=== PATIENT | female | born 1945 | race Caucasian/White ===

== ENCOUNTER 2021-07-12 07:36 | Emergency (ER) | payer MEDICARE, OTHER, MEDICAID ==
[~2021-07-12] VITALS: Ht 162.6 cm; Wt 105.0 kg
--- NOTE | 2021-07-12 08:19 | RAD ---
Exam:Left ribs with PA chest Date: 07/12/2021 7:47 AM Comparison: No prior Indication: Reason: fall, mild left rib tenderness / Spl. Instructions: / History: Findings/ Impression: The heart is not enlarged. Mediastinal and hilar contours are normal. Calcified mediastinal and hilar lymph nodes. No focal parenchymal airspace opacity. Calcified granuloma left lower lung. No pleural effusion or pneumothorax. AP, Oblique and Spot images of the left ribs are negative for acute displaced rib fracture. Negative focal pleural elevation. Symmetrical intercostal spacing. It is of note that an acute non-displaced rib fracture can be in-apparent on initial post-trauma imag ing, particularly in this patient with marked osteopenia. Electronically signed by: Lan Peacock MD (07/12/2021 8:17 AM) [id number]
[2021-07-12 08:39] LABS: BASO % 1 % (0-3); EOS # 0.2 x10^3/uL (0.0-0.7); EOS % 2 % (0-3); HEMATOCRIT 35.3 % (36.0-47.0); HEMOGLOBIN 11.6 g/dL (12.0-15.5); LYMPH # 1.1 x10^3/uL (1.0-4.8); LYMPH % 12 % (24-48); MEAN CORPUSCULAR HEMOGLOBIN 29 pg (25-35); MEAN CORPUSCULAR HGB CONC 33 g/dL (31-37); MEAN CORPUSCULAR VOLUME 87 fL (79-100); MONO # 0.8 x10^3/uL (0.0-1.1); MONO % 9 % (0-9); NEUT # 7.2 x10^3/uL (1.8-7.7); NEUT % 77 % (31-73); PLATELET COUNT 215 x10^3/uL (140-400); RED BLOOD COUNT 4.04 x10^6/uL (3.50-5.40); RED CELL DISTRIBUTION WIDTH 13.3 % (11.5-14.5); WHITE BLOOD COUNT 9.3 x10^3/uL (4.0-11.0)
--- NOTE | 2021-07-12 08:43 | RAD ---
Exam Date: 07/12/2021 8:[address] HEAD AND C-SPINE WO Indication: Reason: fall, on ASA/Plavix / Spl. Instructions: / History: . One or more of the following dose reduction techniques were utilized: *Automated exposure control (AEC) *Adjustment of mA and/or kV according to patient size *Use of iterative reconstruction technique *CT scan done according to ALARA, or ALARA/IMAGE GENTLY EXAMINATION: CT OF THE HEAD WITHOUT CONTRAST INDICATION: Trauma, head injury, headache; TECHNIQUE: Noncontrast helical axial CT images of the head were obtained. 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 The ventricles and sulci are prominent consistent with cerebral volume loss. Patchy ill-defined low attenuation areas in the subcortical and periventricular white matter bilaterally are consistent with microvascular disease. There is no evidence of acute intracranial hemorrhage, extra-axial collecti on, mass effect, midline shift, or acute territorial infarct. No lesion of the skull base or the calv arium is seen. The visualized paranasal sinuses, mastoid air cells, and orbits are normal in appearan ce. IMPRESSION: No evidence for acute intracranial abnormality. 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 Volume loss and microvascular disease. EXAMINATION: CT OF THE CERVICAL SPINE WITHOUT CONTRAST Clinical Indication: Cervical spine pain after trauma Technique: Thin cut helical axial CT images through the cervical spine were obtained without contrast on a multi-detector CT scanner. Source data was then reconstructed into sagittal and coronal planes. Findings: Alignment is maintained without spondylolisthesis. Vertebral body heights are maintained without acute fracture. Moderate multilevel degenerative change s are noted. No significant prevertebral soft tissue swelling is demonstrated. No severe osseous cent ral canal stenosis is seen. Impression: No evidence of acute cervical spine fracture or subluxation. Electronically signed by: John Nolasco MD (07/12/2021 8:41 AM) [id number]
[2021-07-12 08:51] LABS: CALCIUM 8.5 mg/dL (8.5-10.1); CREATININE 1.4 mg/dL (0.6-1.0); GFR 36.4; POTASSIUM 3.8 mmol/L (3.5-5.1)
[2021-07-12 09:40] LABS: BILIRUBIN,URINE NEGATIVE (NEG); CLARITY,URINE CLEAR; COLOR,URINE YELLOW; NITRITE,URINE POSITIVE (NEG); PH,URINE 5.5 (<5.0-8.0); PROTEIN,URINE 100 mg/dL (NEG-TRACE); UROBILINOGEN,URINE 0.2 mg/dL (0.2 mg/dL)
[2021-07-12 09:57] LABS: BACTERIA,URINE MANY /HPF (0-FEW); RBC,URINE 0 /HPF (0-2); WBC,URINE 0 /HPF (0-4)
--- NOTE | 2021-07-12 10:13 | RAD ---
XR EXAM OF ANKLE_RIGHT 3VIEWS History: Fall, ankle pain Comparison: None. Technique: 3 views of the right ankle. Findings: Decreased osseous mineralization. No fracture or dislocation. The ankle mortise and talar dome are in tact. Ossific densities at the lateral malleolus tip consistent with sequela of old ligamentous avuls ion injuries. Small plantar calcaneal enthesophyte. Diffuse ankle soft tissue swelling. Small anterio r ankle effusion. Impression: 1. No acute osseous abnormality of the right ankle. Electronically signed by: Ishmael Wheat MD (07/12/2021 10:11 AM) [id number]
--- NOTE | 2021-07-12 10:26 | PHYS DOC ---
Past Medical History Past Surgical History: Other Additional Past Surgical Histo: unable to obtain Smoking Status: Unknown if ever smoked Alcohol Use: None General Adult EDM: Chief Complaint: MECHANICAL FALL HPI: HPI: Patient is a 76 year old female with history of dementia, CKD, HTN, DM who presents with an unwitnessed fall at her nursing facility [facility]. She was seen in her normal state this morning, and 15 minutes later was found on the ground by nursing staff. Was initially face down, but she turned herself onto her back under her own power. Unsure of LOC. She is on Plavix and aspirin per her MAR. No other blood thinners. Patient was initially complaining of pain, but unclear location, but on arrival to the ED is no longer complaining of any pain. Review of Systems: Review of Systems: Cannot complete full ROS secondary to dementia Heart Score: C/O Chest Pain: No Allergies: Allergies: Allergies Coded Allergies Type Severity Reaction Last Updated Verified desipramine Allergy Unknown 07/12/21 Yes naproxen Allergy Unknown 07/12/21 Yes rofecoxib Allergy Unknown 07/12/21 Yes simvastatin Allergy Unknown 07/12/21 Yes Physical Exam: PE: Constitutional: Well developed, well nourished, no acute distress, non-toxic appearance. [] HENT: Slight bruising on the right forehead. No underlying tenderness or instability. Eyes: PERRLA, EOMI, conjunctiva normal, no discharge. [] Neck: Normal range of motion, no midline tenderness, supple, no stridor. [] Cardiovascular:Heart rate regular rhythm, no murmur [] Lungs & Thorax: Breath sounds clear to auscultation bilaterally. Mild left ches t wall tenderness to palpation with lateral pressure. Abdomen: Bowel sounds normal, soft, no tenderness, no masses, no pulsatile masses.. Pelvis stable. [] Skin: Warm, dry, no erythema, no rash. [] Back: No tenderness, no CVA tenderness. [] Extremities: No tenderness, no cyanosis, no clubbing, ROM intact, no edema. [] Neurologic: Alert and oriented to person, normal motor function, normal sensory function, no focal deficits noted. [] Psychologic: Affect normal, judgement normal, mood normal. [] Current Patient Data: Labs: Laboratory Tests Test 07/12/21 08:31 07/12/21 09:19 White Blood Count 9.3 x10^3/uL (4.0-11.0) Red Blood Count 4.04 x10^6/uL (3.50-5.40) Hemoglobin 11.6 g/dL (12.0-15.5) L Hematocrit 35.3 % (36.0-47.0) L Mean Corpuscular Volume 87 fL (79-100) Mean Corpuscular Hemoglobin 29 pg (25-35) Mean Corpuscular Hemoglobin Concent 33 g/dL (31-37) Red Cell Distribution Width 13.3 % (11.5-14.5) Platelet Count 215 x10^3/uL (140-400) Neutrophils (%) (Auto) 77 % (31-73) H Lymphocytes (%) (Auto) 12 % (24-48) L Monocytes (%) (Auto) 9 % (0-9) Eosinophils (%) (Auto) 2 % (0-3) Basophils (%) (Auto) 1 % (0-3) Neutrophils # (Auto) 7.2 x10^3/uL (1.8-7.7) Lymphocytes # (Auto) 1.1 x10^3/uL (1.0-4.8) Monocytes # (Auto) 0.8 x10^3/uL (0.0-1.1) Eosinophils # (Auto) 0.2 x10^3/uL (0.0-0.7) Basophils # (Auto) 0.0 x10^3/uL (0.0-0.2) Sodium Level 147 mmol/L (136-145) H Potassium Level 3.8 mmol/L (3.5-5.1) Chloride Level 107 mmol/L (98-107) Carbon Dioxide Level 25 mmol/L (21-32) Anion Gap 15 (6-14) H Blood Urea Nitrogen 29 mg/dL (7-20) H Creatinine 1.4 mg/dL (0.6-1.0) H Estimated GFR (Cockcroft-Gault) 36.4 Glucose Level 133 mg/dL (70-99) H Calcium Level 8.5 mg/dL (8.5-10.1) Urine Color Yellow Urine Clarity Clear Urine pH 5.5 (<5.0-8.0) Urine Specific Soldier 1.015 (1.000-1.030) Urine Protein 100 mg/dL (NEG-TRACE) Urine Glucose (UA) Negative mg/dL (NEG) Urine Ketones (Stick) Negative mg/dL (NEG) Urine Blood Trace (NEG) Urine Nitrite Positive (NEG) Urine Bilirubin Negative (NEG) Urine Urobilinogen Dipstick 0.2 mg/dL (0.2 mg/dL) Urine Leukocyte Esterase Negative (NEG) Urine RBC 0 /HPF (0-2) Urine WBC 0 /HPF (0-4) Urine Squamous Epithelial Cells Few /LPF Urine Bacteria Many /HPF (0-FEW) Laboratory Tests 07/12/21 08:31 Laboratory Tests 07/12/21 08:31 Vital Signs: Vital Signs Date Time Temp Pulse Resp B/P (MAP) Pulse Ox O2 Delivery O2 Flow Rate FiO2 07/12/21 07:49 98.5 66 18 204/91 (128 94 Room Air 98.5 EKG: EKG: [] Radiology/Procedures: Radiology/Procedures: [] Impression: [facility] [address] [place], [place] [id number] IMAGING REPORT Signed PATIENT: GURPREET DAYOUNT: [id number] : 1945 LOCATION: ER AGE: 76 SEX: F EXAM STATUS: PRE ER ORD. PHYSICIAN: GRACE LONGORIA MD REASON: fall, mild left rib tenderness PROCEDURE: RIBS LEFT AND PA CHEST Exam:Left ribs with PA chest Date: 07/12/2021 7:47 AM Comparison: No prior Indication: Reason: fall, mild left rib tenderness / Spl. Instructions: / History: Findings/ Impression: The heart is not enlarged. Mediastinal and hilar contours are normal. Calcified mediastinal and hilar lymph nodes. No focal parenchymal airspace opacity. Calcified granuloma left lower lung. No pleural effusion or pneumothorax. AP, Oblique and Spot images of the left ribs are negative for acute displaced rib fracture. Negative focal pleural elevation. Symmetrical intercostal spacing. It is of note that an acute non-displaced rib fracture can be in-apparent on initial post-trauma imaging, particularly in this patient with marked osteopenia. Electronically signed by: Lan Oliva MD (07/12/2021 8:17 AM) [id number] DICTATED and SIGNED BY: LAN OLIVA MD DATE: 07/12/21 [id number] 0 [facility] [address] [place] [address] IMAGING REPORT Signed PATIENT: GURPREET DAYOUNT: [id number] : 1945 LOCATION: ER AGE: 76 SEX: F EXAM STATUS: PRE ER ORD. PHYSICIAN: GRACE LONGORIA MD REASON: fall, on ASA/Plavix PROCEDURE: CT HEAD AND CERVICAL SPINE WO Exam Date: 07/12/2021 8:[address] HEAD AND C-SPINE WO Indication: Reason: fall, on ASA/Plavix / Spl. Instructions: / History: . One or more of the following dose reduction techniques were utilized: *Automated exposure control (AEC) *Adjustment of mA and/or kV according to patient size *Use of iterative reconstruction technique *CT scan done according to ALARA, or ALARA/IMAGE GENTLY EXAMINATION: CT OF THE HEAD WITHOUT CONTRAST INDICATION: Trauma, head injury, headache; TECHNIQUE: Noncontrast helical axial CT images of the head were obtained. 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 The ventricles and sulci are prominent consistent with cerebral volume loss. Patchy ill-defined low attenuation areas in the subcortical and periventricular white matter bilaterally are consistent with microvascular disease. There is no evidence of acute intracranial hemorrhage, extra-axial collection, mass effect, midline shift, or acute territorial infarct. No lesion of the skull base or the calvarium is seen. The visualized paranasal sinuses, mastoid air cells, and orbits are normal in appearance. IMPRESSION: No evidence for acute intracranial abnormality. 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 Volume loss and microvascular disease. EXAMINATION: CT OF THE CERVICAL SPINE WITHOUT CONTRAST Clinical Indication: Cervical spine pain after trauma Technique: Thin cut helical axial CT images through the cervical spine were obtained without contrast on a multi-detector CT scanner. Source data was then reconstructed into sagittal and coronal planes. Findings: Alignment is maintained without spondylolisthesis. Vertebral body heights are maintained without acute fracture. Moderate multilevel degenerative changes are noted. No significant prevertebral soft tissue swelling is demonstrated. No severe osseous central canal stenosis is seen. Impression: No evidence of acute cervical spine fracture or subluxation. Electronically signed by: Melly Nolasco MD (07/12/2021 8:41 AM) [id number] DICTATED and SIGNED BY: MELLY NOLASCO MD DATE: 07/12/21 [id number] 0 [facility] [address] [place] [address] IMAGING REPORT Signed PATIENT: GURPREET DAYOUNT: [id number] : 1945 LOCATION: ER AGE: 76 SEX: F EXAM STATUS: REG ER ORD. PHYSICIAN: GRACE LONGORIA MD REASON: fall, ankle pain PROCEDURE: ANKLE RIGHT 3V XR EXAM OF ANKLE_RIGHT 3VIEWS History: Fall, ankle pain Comparison: None. Technique: 3 views of the right ankle. Findings: Decreased osseous mineralization. No fracture or dislocation. The ankle mortise and talar dome are intact. Ossific densities at the lateral malleolus tip consistent with sequela of old ligamentous avulsion injuries. Small plantar calcaneal enthesophyte. Diffuse ankle soft tissue swelling. Small anterior ankle effusion. Impression: 1. No acute osseous abnormality of the right ankle. Electronically signed by: Ishmael Ng MD (07/12/2021 10:11 AM) [id number] DICTATED and SIGNED BY: ISHMAEL NG MD DATE: 07/12/21 [id number] 0 Course & Med Decision Making: Course & Med Decision Making Pertinent Labs and Imaging studies reviewed. (See chart for details) Patient is 76-year-old female with history of dementia, CKD, HTN, DM who presents from [facility] after an unwitnessed fall. There was no p rolonged downtime. On arrival is afebrile, hemodynamically stable. At her reported neurologic baseline. Basic labs show known CKD. UA not infected. Chest x-ray and rib series negative for acute fracture or pulmonary process. She briefly complained of right ankle pain, plain films were negative and no e/o injury was seen on exam. CT head and neck were negative. Feel she can be safely discharged back to [facility] at this time. [address] Disclaimer: Ashley Disclaimer: This electronic medical record was generated, in whole or in part, using a voice recognition dictation system. Departure Departure Impression: Primary Impression: Fall Additional Impression: Forehead contusion Disposition: HOME / SELF CARE / HOMELESS Condition: STABLE Referrals: NO PCP (PCP) GRACE LONGORIA MD Jul 12, 2021 10:26
[2021-07-12 12:27] VITALS: BP 154/89
== END 2021-07-12 12:28 | disposition home or self-care (01) ==
LOC: ER 07:36
DX: S00.83XA Contusion of other part of head, initial encounter (principal); R07.89 Other chest pain; M25.571 Pain in right ankle and joints of right foot; F03.90 Unspecified dementia, unspecified severity, without behavioral disturbance, psychotic disturbance, mood disturbance, and anxiety; E11.22 Type 2 diabetes mellitus with diabetic chronic kidney disease; I12.9 Hypertensive chronic kidney disease with stage 1 through stage 4 chronic kidney disease, or unspecified chronic kidney disease; N18.9 Chronic kidney disease, unspecified; Z79.02 Long term (current) use of antithrombotics/antiplatelets; Z88.8 Allergy status to other drugs, medicaments and biological substances; W18.39XA Other fall on same level, initial encounter; Y93.89 Activity, other specified; Y92.89 Other specified places as the place of occurrence of the external cause; Y99.8 Other external cause status
CPT/HCPCS: 36415; 70450; 71101; 72125; 73610; 80048; 81001; 85025; 99285-25

== ENCOUNTER 2021-07-30 06:29 | Emergency (ER) | payer MEDICARE, OTHER ==
[~2021-07-30] VITALS: Ht 162.6 cm; Wt 97.7 kg
--- NOTE | 2021-07-30 06:46 | PHYS DOC ---
Past Medical History Past Surgical History: Other Additional Past Surgical Histo: unable to obtain Smoking Status: Unknown if ever smoked Alcohol Use: None General Adult EDM: Chief Complaint: ALTERED MENTAL STATUS HPI: HPI: Patient is a 76 year old female brought in by EMS from [facility], her assisted living facility, for being found on the bathroom floor. She reportedly had a fall, though this was unwitnessed. The staff called EMS because the patient cannot remember how she got there. The patient has dementia, she is currently at her baseline mental status, no report of acute confusion. The patient admits that she is not sure what happened. She is awake, alert, she is oriented to person only, and this is her baseline. She reports some mild right- sided groin pain. She denies headache, neck pain, back pain. She denies chest pain, dyspnea, palpitations, nausea or vomiting or abdominal pain. She denies numbness or tingling or focal motor weakness. She has chronic and unchanged bilateral lower extremity pain, muscle aches and bilateral knee pain, which is unchanged. She denies any acute knee injury or trauma. The patient takes Plavix, no other anticoagulant medications reportedly being taken. She was seen here in this ER on 07/12/21 for evaluation after a fall. Imaging was negative at that time, and she was discharged home from the ED. Review of Systems: Review of Systems: Review of systems is as per HPI. The patient has baseline dementia and chronic confusion, unable to obtain more detailed information for review of systems aside as per HPI. Please see above Heart Score: C/O Chest Pain: No Risk Factors: Risk Factors: DM, Current or recent (<one month) smoker, HTN, HLP, family history of CAD, obesity. Risk Scores: Score 0 - 3: 2.5% MACE over next 6 weeks - Discharge Home Score 4 - 6: 20.3% MACE over next 6 weeks - Admit for Clinical Observation Score 7 - 10: 72.7% MACE over next 6 weeks - Early Invasive Strategies Allergies: Allergies: Allergies Coded Allergies Type Severity Reaction Last Updated Verified desipramine Allergy Unknown 07/12/21 Yes naproxen Allergy Unknown 07/12/21 Yes rofecoxib Allergy Unknown 07/12/21 Yes simvastatin Allergy Unknown 07/12/21 Yes Physical Exam: PE: Constitutional: Well developed, well nourished, no acute distress, non-toxic appearance. She is sitting up in the ED gurney, smiling, resting comfortably HENT: Normocephalic, atraumatic, oropharynx is patent and clear, no dental trauma. TMs are clear bilaterally, no otorrhea, no hemotympanum. Nares are patent without rhinorrhea or epistaxis. Mucous membranes are moist. Eyes: PERRL, EOMI, conjunctiva normal, no discharge. No nystagmus. Neck: Normal range of motion, no tenderness, supple, no stridor. Trachea is midline. No midline or paraspinal muscle tenderness, no step-offs or defor mities. Cardiovascular:Heart rate regular rhythm, was 2 dorsalis pedis and +2 radial pulses bilaterally. Lungs & Thorax: Bilateral breath sounds clear to auscultation [] Abdomen: Admits obese, soft, nondistended, nontender to palpation. Skin: Warm, dry, no erythema, no rash. No open wounds. Back: No tenderness, no CVA tenderness, no deformity, no step-offs, no midline or paraspinal tenderness. Extremities: No limb deformities. Pelvis is stable. Mild soft tissue tenderness of the right proximal femur, inguinal area. No palpable defect or hernia. No palpable crepitus or step-offs. Painless passive range of motion of bilateral hips, knees, ankles and feet. No calf tenderness. No upper extremity tenderness or deformities. Neurologic: He is awake, alert, oriented to person only. Pleasantly confused, she is confused about location, date, situation. She follows all commands. Cranial nerves II through XII grossly intact. Speech is clear and fluent. 5 out of 5 motor strength all 4 extremities. No evidence of limb ataxia or pronator drift. Psychologic: Affect normal, judgement normal, mood normal. Is pleasant and cooperative. EKG: EKG: EKG is interpreted at 0643 Rhythm is sinus Rate is 69 bpm Marked artifact No STEMI Radiology/Procedures: Radiology/Procedures: IMAGING REPORT Signed PATIENT: ROB DAY: [id number] : 1945 LOCATION: ER AGE: 76 SEX: F EXAM STATUS: PRE ER ORD. PHYSICIAN: MARCEL CHIANG DO REASON: fall, R hip pain PROCEDURE: HIP RIGHT 2V WITH PELVIS Exam Date: 07/30/2021 7:04 AM XR BILATERAL HIP (WITH OR WITHOUT PELVIS) 2 VIEWS_RIGHT Indication: Reason: fall, R hip pain / Spl. Instructions: / History: . FINDINGS/ IMPRESSION: Mild degenerative changes are seen in the hips bilaterally. Alignment is maintained. Degenerative changes are noted in the lower lumbar spine, SI joints, and pubic symphysis. No acute fracture or dislocation. The soft tissues are within normal limits. Electronically signed by: John Nolasco MD (07/30/2021 7:24 AM) [id number] DICTATED and SIGNED BY: JOHN NOLASCO MD DATE: 07/30/21 [id number] 0 IMAGING REPORT Signed PATIENT: GURPREET DAYOUNT: [id number] : 1945 LOCATION: ER AGE: 76 SEX: F EXAM STATUS: PRE ER ORD. PHYSICIAN: MARCEL CHIANG DO REASON: fall PROCEDURE: CT HEAD AND CERVICAL SPINE WO Exam Date: 07/30/2021 7:[address] HEAD AND C-SPINE WO Indication: Reason: fall / Spl. Instructions: / History: . One or more of the following dose reduction techniques were utilized: *Automated exposure control (AEC) *Adjustment of mA and/or kV according to patient size *Use of iterative reconstruction technique *CT scan done according to ALARA, or ALARA/IMAGE GENTLY EXAMINATION: CT OF THE HEAD WITHOUT CONTRAST INDICATION: Trauma, head injury, headache; TECHNIQUE: Noncontrast helical axial CT images of the head were obtained. COMPARISON: July 12, 2021 FINDINGS: Again seen is encephalomalacia in the right frontal lobe consistent with remote infarct. The ventricles and sulci are prominent consistent with cerebral volume loss. Patchy ill-defined low attenuation areas in the subcortical and periventricular white matter bilaterally are consistent with microvascular disease. There is no evidence of acute intracranial hemorrhage, extra-axial collection, mass effect, midline shift, or acute territorial infarct. No lesion of the skull base or the calvarium is seen. The visualized paranasal sinuses, mastoid air cells, and orbits are normal in appearance. IMPRESSION: No evidence for acute intracranial abnormality. 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 EXAMINATION: CT OF THE CERVICAL SPINE WITHOUT CONTRAST Clinical Indication: Cervical spine pain after trauma Technique: Thin cut helical axial CT images through the cervical spine were obtained without contrast on a multi-detector CT scanner. Source data was then reconstructed into sagittal and coronal planes. COMPARISON: July 12, 2021 Findings: Alignment is maintained without spondylolisthesis. Vertebral body heights are maintained without acute fracture. Moderate multilevel degenerative disease are noted. No significant prevertebral soft tissue swelling is demonstrated. No severe osseous central canal stenosis is seen. Impression: No evidence of acute cervical spine fracture or subluxation. Electronically signed by: John Nolasco MD (07/30/2021 7:57 AM) [id number] DICTATED and SIGNED BY: JOHN NOLASCO MD DATE: 07/30/21 [id number] 0 Course & Med Decision Making: Course & Med Decision Making Pertinent Labs and Imaging studies reviewed. (See chart for details) The patient is resting comfortably, declines any pain medication. Imaging studies are unremarkable. I spoke with the patient's power of civil litigation attorney and br other via phone, and he admits that this is her baseline mental status. He wanted her evaluated secondary to having had a fall earlier this month. I explained her clinical condition, he reports that the sound like her baseline mental status. He is comfortable with the plan for her being discharged back home. She has been resting comfortably, without complaint. She is stable. I attempted multiple times to contact [facility], her assisted living facility, and I was unable to reach a staff member there, but she will be transferred back there to her home. Nursing staff will arrange transport. Her brother and power of civil litigation attorney is comfortable with this plan. Return precautions are provided. Dragon Disclaimer: Dragon Disclaimer: This electronic medical record was generated, in whole or in part, using a voice recognition dictation system. Departure Departure Impression: Primary Impression: Fall Additional Impressions: Dementia Right inguinal pain Disposition: HOME / SELF CARE / HOMELESS Condition: STABLE Referrals: NO PCP (PCP) Patient Instructions: Fall Prevention and Home Safety Additional Instructions: Return to the ER for any new injury or trauma, if you have chest pain, shortness of breath, vomiting, fever, weakness, severe pain or other concerns. Your CAT scan and x-rays here today were normal. I have spoken with your brother, who is comfortable with your discharge back to your care facility. MARCEL CHIANG DO Jul 30, 2021 06:46
--- NOTE | 2021-07-30 07:26 | RAD ---
Exam Date: 07/30/2021 7:04 AM XR BILATERAL HIP (WITH OR WITHOUT PELVIS) 2 VIEWS_RIGHT Indication: Reason: fall, R hip pain / Spl. Instructions: / History: . FINDINGS/ IMPRESSION: Mild degenerative changes are seen in the hips bilaterally. Alignment is maintained. Degenerative c hanges are noted in the lower lumbar spine, SI joints, and pubic symphysis. No acute fracture or dislocation. The soft tissues are within normal limits. Electronically signed by: John Nolasco MD (07/30/2021 7:24 AM) [id number]
--- NOTE | 2021-07-30 07:59 | RAD ---
Exam Date: 07/30/2021 7:[address] HEAD AND C-SPINE WO Indication: Reason: fall / Spl. Instructions: / History: . One or more of the following dose reduction techniques were utilized: *Automated exposure control (AEC) *Adjustment of mA and/or kV according to patient size *Use of iterative reconstruction technique *CT scan done according to ALARA, or ALARA/IMAGE GENTLY EXAMINATION: CT OF THE HEAD WITHOUT CONTRAST INDICATION: Trauma, head injury, headache; TECHNIQUE: Noncontrast helical axial CT images of the head were obtained. COMPARISON: July 12, 2021 FINDINGS: Again seen is encephalomalacia in the right frontal lobe consistent with remote infarct. The ventricles and sulci are prominent consistent with cerebral volume loss. Patchy ill-defined low attenuation areas in the subcortical and periventricular white matter bilaterally are consistent with microvascular disease. There is no evidence of acute intracranial hemorrhage, extra-axial collecti on, mass effect, midline shift, or acute territorial infarct. No lesion of the skull base or the calv arium is seen. The visualized paranasal sinuses, mastoid air cells, and orbits are normal in appearan ce. IMPRESSION: No evidence for acute intracranial abnormality. 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 EXAMINATION: CT OF THE CERVICAL SPINE WITHOUT CONTRAST Clinical Indication: Cervical spine pain after trauma Technique: Thin cut helical axial CT images through the cervical spine were obtained without contrast on a multi-detector CT scanner. Source data was then reconstructed into sagittal and coronal planes. COMPARISON: July 12, 2021 Findings: Alignment is maintained without spondylolisthesis. Vertebral body heights are maintained without acute fracture. Moderate multilevel degenerative diseas e are noted. No significant prevertebral soft tissue swelling is demonstrated. No severe osseous cent ral canal stenosis is seen. Impression: No evidence of acute cervical spine fracture or subluxation. Electronically signed by: John Nolasco MD (07/30/2021 7:57 AM) [id number]
[2021-07-30 10:50] VITALS: BP 156/72
--- NOTE | 2021-08-01 03:36 | EKG ---
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
== END 2021-07-30 10:55 | disposition home or self-care (01) ==
LOC: ER 06:29
DX: R10.31 Right lower quadrant pain (principal); F03.90 Unspecified dementia, unspecified severity, without behavioral disturbance, psychotic disturbance, mood disturbance, and anxiety; M54.2 Cervicalgia; M25.551 Pain in right hip; R51.9 Headache, unspecified; G89.11 Acute pain due to trauma; Z88.5 Allergy status to narcotic agent; Z88.8 Allergy status to other drugs, medicaments and biological substances; W18.39XA Other fall on same level, initial encounter; Y93.89 Activity, other specified; Y92.89 Other specified places as the place of occurrence of the external cause; Y99.8 Other external cause status
CPT/HCPCS: 70450; 72125; 73502; 93005; 99285-25